=== PATIENT | female | born 1940 | race Caucasian/White ===

== ENCOUNTER 2019-07-07 12:12 | Inpatient (IN) | payer MEDICARE ==
[2019-07-07 23:30] VITALS: BP 148/92
[2019-07-08] MEDS ORDERED: Magnesium Hydroxide (MOM) 30 mL UDC PO PRN (00:07)
--- NOTE | 2019-07-08 07:28 | Psychiatric Evaluation ---
DATE OF SERVICE: 07/07/2019 AGE: 78. SEX: Female. PHYSICIAN: Dr. Sierra. CHIEF COMPLAINT: "I am 23 years old." HISTORY OF PRESENT ILLNESS: The patient is a 78-year-old female who was admitted to the hospital from [facility] because of increased agitation and increased irritability. The patient has been increasingly agitated and confused. The patient also has not been able to follow out any directions and has been striking out at staff and peers. She also has been actively hallucinating and talking to herself and in angry and in irritable mood. She also has not been able to follow any of staff directions. The patient has history of depression and has been taking Prozac and Seroquel. PAST PSYCHIATRIC HISTORY: The patient has history of depression and psychosis and dementia. The patient is taking Seroquel and Prozac. PAST MEDICAL HISTORY: The patient has hypercholesterolemia and hypertension. SOCIAL HISTORY: The patient said that she has 1 son. She also said that she is . She denies alcohol or any street drug use. She lives in [facility]. ALLERGIES: No known allergies. MENTAL STATUS EXAMINATION: The patient appears her stated age, anxious, irritable mood. Confused and unable to answer any of the questions coherently. The patient denies any hallucinations or delusions, but she is actively responding to stimuli and actively hallucinating. The patient denies any thoughts of suicide or homicide. The patient is alert, but disoriented to time, place, person and situation. Impaired immediate, recent and remote memories and she is not even able to remember her date. Poor insight and poor judgment. ASSESSMENT: PRIMARY DIAGNOSIS: Unspecified psychosis. SECONDARY DIAGNOSIS: Dementia, severe, with psychotic features. MEDICAL DIAGNOSES: 1. Hypertension. 2. Hypercholesterolemia. TREATMENT PLAN: We will continue to monitor the patient's behavior and condition closely. Also, we will increase Seroquel to 25 mg twice a day. Also, we will continue to monitor her behavior and her condition closely. Also, we will work on her poor impulse control. ESTIMATED LENGTH OF STAY: 5-7 days. PATIENT'S STRENGTHS AND WEAKNESSES: The patient's strength is not clear at that time except that she seems to be in relatively fair health and have supportive team in the shelter. Weaknesses is her ineffective coping and poor impulse control. AFTER DISCHARGE PLAN: Outpatient treatment and followup, will continue as an outpatient and the patient will return back to [facility]. CRITERIA FOR DISCHARGE: Stabilize psychotropic medications and the patient will have better impulse control. JOB# [id number]
--- NOTE | 2019-07-08 12:21 | History and Physical ---
History of Present Illness - HPI Chief Complaint: 78 y/o female patient was brought into ER for evaluation due to Increased Agitation and Increased Irritability. HPI: 78 y/o female patient was admitted to [facility] for evaluation due to Increased Agitation and Increased Irritability. Patient has also been talking to herself and hallucinating. Patient has also been aggressive towards staff and others. Patient has history of Hypertension, Dementia, history of Depression, Psychosis and Hypercholesterolemia. Patient had a Psych consult and a workup was done. Patient was diagnosed with Unspecified Psychosis, Severe Dementia with Psychotic features, history of Depression, history of Hypertension,and History of Hypercholesterolemia. I will follow, treat and monitor patient. Patient will continue current treatment plan as ordered. Vital Signs: Last Vital Signs Temp 98.1 F 07/08/19 06:38 Pulse 66 07/08/19 06:38 Resp 18 07/08/19 06:38 BP 136/68 07/08/19 06:38 Pulse Ox 97 07/08/19 06:38 Past Medical History Cardiovascular: Report: HTN Pulmonary: Report: No Pertinent Hx COP EXAMINER: Report: Dementia GI: Report: No Pertinent Hx Psych: Report: Psychosis Musculoskeletal: Report: No Pertinent Hx Rheumatologic: Report: No pertinent Hx Infectious Disease: Report: No Pertinent Hx Renal/: Report: No Pertinent Hx Endocrine: Report: No Pertinent Hx Dermatology: Report: No Pertinent Hx - Past Surgical History Past Surgical History: No pertinent Hx Family Medical History - Family Member mother History Unknown: Yes Ethnicity: Unknown Living Status: Unknown Hx Family Cancer: (unknown) Hx Family Coronary Artery Disease: (unknown) Hx Family Congestive Heart Failure: (unknown) Hx Family Hypertension: (unknown) Hx Family Stroke: (unknown) Hx Family Diabetes: (unknown) Hx Family Seizures: (unknown) Hx Family Dementia: (unnown) Hx Family AIDS: (unknown) Hx Family COPD: (unknown) Hx Family Hepatitis: (unknown) Hx Family Psychiatric Problems: (unknown) Hx Family Tuberculosis: (unknown) Social History Smoke: No Alcohol: None Drugs: None Lives: Skilled Nursing Domestic Violence: Negative Health Maintenance Health Maintenance: Other (Please see chart.) - Medications Home Medications: Home Medication Medication Instructions Recorded Type Atorvastatin Calcium [Lipitor] 40 mg PO HS 07/07/19 History Donepezil HCl 5 mg PO DAILY 07/07/19 History Fluoxetine HCl [Sarafem] 20 mg PO DAILY 07/07/19 History Metoprolol Tartrate [Lopressor] 50 mg PO DAILY 07/07/19 History Nitrofurantoin Monohyd/M-Cryst 100 mg PO BID MDD 20 07/07/19 History [Macrobid 100 mg Capsule] Oxybutynin Chloride [Ditropan Xl] 10 mg PO DAILY 07/07/19 History QUEtiapine Fumarate [SEROquel] 25 mg PO HS 07/07/19 History Other Medications: Please see Medication reconciliation sheet. - Allergies Allergies/Adverse Reactions: Allergies Allergy/AdvReac Type Severity Reaction Status Date / Time No Known Allergies Allergy Verified 07/07/19 23:34 Review of Systems - Review of Systems Review of Systems: Patient is very delusional and irritable, needs close monitoring. Constitutional: Report: No Significant Eyes: Report: No Significant ENT: Report: No Significant Respiratory: Report: No Significant Cardiovascular: Report: No Significant Gastrointestinal: Report: No Significant Genitourinary: Report: No Significant Musculoskeletal: Report: No Significant Skin: Report: No Significant Neurological: Report: Confusion Physical Exam - Physical Exam HEENT: Report: Ears Nose Throat within normal limits Neck: Report: Within normal limits Cardiovascular Systems: Report: +s1/s2 noted, Regular, Rate and Rhythm Respiratory: Report: Breath Sounds are within normal limits Abdomen: Report: Non-tender to palpation Back: Report: Inspection of back is within normal limits. Extremities: Report: Non-tender to palpation. Skin: Report: Color of skin is within normal limits Neuro/Psych: Report: Disoriented to name time or place, Depressed affect - Lab Results All Lab Results last 24 hours: see lab results. - Assessment Assessment: Unspecified Psychosis. Severe Dementia with Psychotic features. History of Depression. History of Hypertension. History of Hypercholesterolemia. - Plan Plan: Monitor vitals and labs. Psych management as per Psych. Supportive care. Monitor diet and nutritional support. Pain management. Continue current treatment plan as ordered.
--- NOTE | 2019-07-09 07:25 | Progress Notes ---
DATE: SUBJECTIVE: Chart was reviewed and the patient interviewed. Also, discussed the patient's condition with the staff and reviewed records and labs. The patient is still agitated and is still confused. The patient is still restless and she is still striking out at staff when they tried to help her with her ADLs. She also is still unable to answer questions coherently and is still withdrawn and guarded. ASSESSMENT: The patient is still agitated and confused. TREATMENT PLAN: We will decrease Prozac to 10 mg every day because that might also contribute to her agitation. Also, we will continue Seroquel same dose and continue to monitor her behavior closely. JOB# [id number]
--- NOTE | 2019-07-09 13:28 | Internal Medicine Prog Note ---
Internal Medicine Subjective - Subjective Service Date: 07/09/19 Patient seen and examined:: with staff Patient is:: awake, denies any new complaints Per staff patient has:: tolerating meds Internal Medicine Objective - Physical Exam Vitals and I&O: Vital Signs Temp 98.0 F 07/09/19 06:00 Pulse 67 07/09/19 06:00 Resp 18 07/09/19 08:00 BP 123/58 07/09/19 06:00 Pulse Ox 96 07/09/19 06:00 Intake & Output 07/08/19 07/09/19 07/09/19 18:59 06:59 18:59 Intake Total 900 120 Balance 900 120 Intake: Oral 900 120 Other: # Voids 3 2 # Bowel Movements 1 0 Stool Characteristics Soft Soft Soft Active Medications: Current Medications Acetaminophen (Tylenol) 650 mg PO Q4H PRN PRN Reason: Pain (Mild 1-3) Stop: 09/06/19 00:06 Fluoxetine HCl (Prozac) 10 mg PO DAILY PROSPER Stop: 09/07/19 08:59 Lorazepam (Ativan) 0.5 mg PO Q4HR PRN; Protocol PRN Reason: Agitation Stop: 08/07/19 00:06 Magnesium Hydroxide (Milk Of Magnesia) 30 ml PO HS PRN PRN Reason: Constipation Nitrofurantoin Macrocrystals (Macrobid) 100 mg PO BID PROSPER; Protocol Stop: 07/19/19 16:59 Quetiapine Fumarate (Seroquel) 25 mg PO HS PROSPER; Protocol Stop: 09/06/19 20:59 Last Admin: 07/08/19 21:01 Dose: 25 mg Quetiapine Fumarate (Seroquel) 12.5 mg PO DAILY PROSPER; Protocol Stop: 09/06/19 08:59 Last Admin: 07/09/19 08:38 Dose: 12.5 mg Zolpidem Tartrate (Ambien) 5 mg PO HS PRN PRN Reason: Insomnia Stop: 09/06/19 00:06 General: alert HEENT: NC/AT, PERRLA Neck: Supple Lungs: CTAB Cardiovascular: without murmur Abdomen: soft, non-tender, non-distended Extremities: excoriation Neurological: alert Internal Medicine Assmt/Plan - Assessment Assessment: Unspecified Psychosis. Severe Dementia with Psychotic features. History of Depression. History of Hypertension. History of Hypercholesterolemia. - Plan Plan: Monitor vitals and labs. Psych management as per Psych. Supportive care. Monitor diet and nutritional support. Pain management. Continue current treatment plan as ordered.
--- NOTE | 2019-07-10 11:56 | Internal Medicine Prog Note ---
Internal Medicine Subjective - Subjective Service Date: 07/10/19 Patient seen and examined:: with staff Patient is:: awake, verbal, agitated, confused Patient Complaints of:: other (Hostile behavior.) Per staff patient has:: no adverse event, no episodes of fall, tolerating meds Internal Medicine Objective - Physical Exam Vitals and I&O: Vital Signs Temp 97.8 F 07/10/19 06:22 Pulse 75 07/10/19 06:22 Resp 19 07/10/19 06:22 BP 141/80 07/10/19 06:22 Pulse Ox 96 07/10/19 06:22 Intake & Output 07/09/19 07/10/19 07/10/19 18:59 06:59 18:59 Intake Total 1200 300 Output Total 1 Balance 1200 299 Intake: Oral 1200 300 Output: Urine/Stool Mix 1 Other: # Voids 2 # Bowel Movements 1 2 Stool Characteristics Soft Soft Active Medications: Current Medications Acetaminophen (Tylenol) 650 mg PO Q4H PRN PRN Reason: Pain (Mild 1-3) Stop: 09/06/19 00:06 Fluoxetine HCl (Prozac) 10 mg PO DAILY PROSPER Stop: 09/07/19 08:59 Last Admin: 07/10/19 08:40 Dose: 10 mg Lorazepam (Ativan) 0.5 mg PO Q4HR PRN; Protocol PRN Reason: Agitation Stop: 08/07/19 00:06 Magnesium Hydroxide (Milk Of Magnesia) 30 ml PO HS PRN PRN Reason: Constipation Nitrofurantoin Macrocrystals (Macrobid) 100 mg PO BID PROSPER; Protocol Stop: 07/19/19 16:59 Last Admin: 07/10/19 08:38 Dose: 100 mg Quetiapine Fumarate (Seroquel) 25 mg PO HS PROSPER; Protocol Stop: 09/06/19 20:59 Last Admin: 07/09/19 20:54 Dose: 25 mg Quetiapine Fumarate (Seroquel) 12.5 mg PO DAILY PROSPER; Protocol Stop: 09/06/19 08:59 Last Admin: 07/10/19 08:39 Dose: 12.5 mg Zolpidem Tartrate (Ambien) 5 mg PO HS PRN PRN Reason: Insomnia Stop: 09/06/19 00:06 Physical Exam: Patient needs close monitoring, Hostile behavior towards staff, patient is agitated and confused. General: alert HEENT: NC/AT, PERRLA Neck: Supple Lungs: CTAB Cardiovascular: without murmur Abdomen: soft, non-tender, non-distended Extremities: excoriation Neurological: alert Internal Medicine Assmt/Plan - Assessment Assessment: Unspecified Psychosis. Severe Dementia with Psychotic features. History of Depression. History of Hypertension. History of Hypercholesterolemia. - Plan Plan: Monitor vitals and labs. Psych management as per Psych. Supportive care. Monitor diet and nutritional support. Pain management. Continue current treatment plan as ordered. Nutritional Asmnt/Malnutr-PDOC - Dietary Evaluation Malnutrition Findings (Please click <Entered> for more info): see orders.
--- NOTE | 2019-07-10 21:50 | Progress Notes ---
DATE: PSYCHIATRIC PROGRESS NOTE SUBJECTIVE: Chart was reviewed and the patient interviewed. Also discussed the patient's condition with the staff and reviewed records and labs. The patient is still agitated and is still in irritable mood. The patient also is still pounding on the Alannah chair with cough spits and she still needs lots of redirections. Also, uncooperative with the staff and resisting care and tried to strike out towards staff helping her with her ADLs. The patient is also still unable to follow directions because of her confusion and agitation. She also continued to take Rocephin for her urinary tract infection. ASSESSMENT: The patient is still psychotic and agitated. TREATMENT PLAN: Continue to monitor behavior and her condition closely. Also, continue Seroquel, Prozac that was decreased yesterday to 10 mg every day and continue monitoring behavior and follow up closely. JOB# [id number]
--- NOTE | 2019-07-12 01:00 | Progress Notes ---
DATE: 07/11/[address] Sierra. IDENTIFYING DATA: A 78-year-old female admitted from [facility] with agitation and increased irritability. ____ herself, withdrawn, disengaged. Today on [id number] evaluation, selectively mute, still agitated, irritable and disengaged. ASSESSMENT AND PLAN: The patient continues to be disorganized and impulsive, currently on Rocephin for urinary tract infection. We will continue with primary psychiatrist's treatment plan and goals, which includes the following medications: Prozac 10 mg a day and Seroquel 12.5 daily and 25 at nighttime. JOB# [id number]
[2019-07-12] MEDS ORDERED: CEFTRIAXONE IV SCH ×2 (09:00→10:00)
[2019-07-12] MEDS ORDERED: LIDOCAINE 1% IV SCH ×2 (09:00→10:00)
[2019-07-12] MEDS ORDERED: LIDOCAINE 1% IM SCH (10:08)
[2019-07-12] MEDS ORDERED: CEFTRIAXONE IM SCH (10:08)
[2019-07-12] MEDS: CEFTRIAXONE IM SCH (10:53)
[2019-07-12] MEDS: LIDOCAINE 1% IM SCH (10:53)
--- NOTE | 2019-07-12 17:41 | Progress Notes ---
DATE: 07/12/2019 SUBJECTIVE: On [id number], isolated, withdrawn, mostly looking and staring to the wall, minimally engaging, non-participating with selectively mute at times. ASSESSMENT AND PLAN: Grossly disorganized, needing a lot of redirections to maintain simple conversation. We will continue with primary psychiatric treatment plan and goals. JOB# [id number]
[2019-07-12] MEDS ORDERED: Non-Formulary Item 1 EA (Atorvastatin Calcium [Lipitor] 40 MG) PO SCH (21:00)
[2019-07-12] MEDS: Amoxicillin/Clavulanate 500/125 Tab PO SCH (21:39)
[2019-07-13] MEDS: Oxybutynin Chloride 5 mg ER Tab PO SCH (08:48)
[2019-07-13] MEDS: Amoxicillin/Clavulanate 500/125 Tab PO SCH ×3 (08:48→16:19)
[2019-07-13] MEDS ORDERED: OXYBUTYNIN CHLORIDE 10 MG PO SCH (09:00)
[2019-07-13] MEDS ORDERED: CEFTRIAXONE 1 GM IM SCH (10:00)
[2019-07-13] MEDS: LIDOCAINE 1% IM SCH (10:00)
[2019-07-13] MEDS: CEFTRIAXONE IM SCH (10:00)
--- NOTE | 2019-07-13 11:30 | Internal Medicine Prog Note ---
Internal Medicine Subjective - Subjective Service Date: 07/13/19 Patient seen and examined:: with staff Patient is:: awake, verbal, agitated, confused Patient Complaints of:: other (Hostile behavior.) Per staff patient has:: no adverse event, no episodes of fall, tolerating meds Internal Medicine Objective - Physical Exam Vitals and I&O: Vital Signs Temp 97.4 F 07/13/19 05:37 Pulse 72 07/13/19 08:49 Resp 17 07/13/19 08:00 BP 127/73 07/13/19 08:49 Pulse Ox 96 07/13/19 05:37 Intake & Output 07/12/19 07/13/19 07/13/19 18:59 06:59 18:59 Intake Total 600 240 Balance 600 240 Intake: Oral 600 240 Other: # Voids 3 1 # Bowel Movements 0 Active Medications: Current Medications Acetaminophen (Tylenol) 650 mg PO Q4H PRN PRN Reason: Pain (Mild 1-3) Stop: 09/06/19 00:06 Amoxicillin/Clavulanate Potassium (Augmentin 500-125mg) 1 tab PO TIDWM [facility] Stop: 09/10/19 20:59 Last Admin: 07/13/19 08:48 Dose: 1 tab Atorvastatin Calcium (Lipitor) 40 mg PO HS [facility] Stop: 09/10/19 20:59 Last Admin: 07/12/19 21:39 Dose: 40 mg Donepezil HCl (Aricept) 10 mg PO DAILY [facility] Stop: 09/11/19 08:59 Last Admin: 07/13/19 08:48 Dose: 10 mg Fluoxetine HCl (Prozac) 10 mg PO DAILY [facility] Stop: 09/07/19 08:59 Last Admin: 07/13/19 08:49 Dose: 10 mg Ceftriaxone Sodium 1 gm/ (Lidocaine HCl) 3.5 mls @ 7 mls/hr IM Q24HR@0900 [facility] Stop: 09/10/19 10:34 Last Admin: 07/13/19 10:00 Dose: 7 mls/hr Lorazepam (Ativan) 0.5 mg PO Q4HR PRN; Protocol PRN Reason: Agitation Stop: 08/07/19 00:06 Magnesium Hydroxide (Milk Of Magnesia) 30 ml PO HS PRN PRN Reason: Constipation Metoprolol Tartrate (Lopressor) 50 mg PO DAILY [facility] Stop: 09/11/19 08:59 Last Admin: 07/13/19 08:49 Dose: 50 mg Oxybutynin Chloride (Ditropan Xl) 10 mg PO DAILY [facility] Stop: 09/11/19 08:59 Last Admin: 07/13/19 08:48 Dose: 10 mg Quetiapine Fumarate (Seroquel) 25 mg PO HS PROSPER; Protocol Stop: 09/06/19 20:59 Last Admin: 07/12/19 21:40 Dose: 25 mg Quetiapine Fumarate (Seroquel) 12.5 mg PO DAILY PROSPER; Protocol Stop: 09/06/19 08:59 Last Admin: 07/13/19 08:48 Dose: 12.5 mg Zolpidem Tartrate (Ambien) 5 mg PO HS PRN PRN Reason: Insomnia Stop: 09/06/19 00:06 Last Admin: 07/12/19 21:39 Dose: 5 mg Physical Exam: Patient needs close monitoring, very confused, easily frustrated and irritable, striking out towards staff. General: alert HEENT: NC/AT, PERRLA Neck: Supple Lungs: CTAB Cardiovascular: without murmur Abdomen: soft, non-tender, non-distended Extremities: excoriation Neurological: alert Internal Medicine Assmt/Plan - Assessment Assessment: Unspecified Psychosis. Severe Dementia with Psychotic features. History of Depression. History of Hypertension. History of Hypercholesterolemia. - Plan Plan: Monitor vitals and labs. Psych management as per Psych. Supportive care. Monitor diet and nutritional support. Pain management. Continue current treatment plan as ordered. Nutritional Asmnt/Malnutr-PDOC - Dietary Evaluation Malnutrition Findings (Please click <Entered> for more info): Nutritional Asmnt/Malnutrition Start: 07/10/19 15: 20 Text: Status: Complete Freq: Protocol: Document 07/10/19 15:20 MATHIEU (Rec: 07/10/19 15:22 MATHIEU [email or web address]) Nutritional Asmnt/Malnutrition Patient General Information Nutritional Screening Moderate Risk Diagnosis Psychosis Pertinent Medical Hx/Surgical Hx Depression, HTN, Hypercholesterolemia Subjective Information Pt is a 78-year-old female admitted on 2/4 d/t increased agitation and irritability. Pt is eating an estimated 88% of meals since admit date (x2 days) Per Meal/Nutrition Activity Record. Dietary is currently providing an estimated 1700 kcals and 85 gm Pro, per Pt PO intake this is providing an estimated 1500 kcals and 75gm Pro to meet 100 % kcal and 100+% Pro needs. Visited pt in resting room today, explained her Cardiac diet Rx, educated her on eating lots of fruits and vegetables and explained why we do not put salt on her trays. Pt understood and was very pleasant. Anthropometrics HT: 5 FT WT: 129 LB (58.64 kg) BMI: 25.33 (Overweight) GI/ Skin Integrity GI: WNL, Soft, Flat, Non- tender BM: 07/10 x2 I/O: 1500/1 (+1499) Skin: Buttocks Reddness Rubens: 17 Diet Order: Cardiac, Chopped, ASAD Estimated Energy Needs: ( Geriatric, CBW) 6578-7033 kcals (25-30 kcals/ kg) 60-70g Pro (1.0-1.2 g/kg) 4800-5553 ml (25-30 ml/kg) Current Diet Order/ Nutrition Support Cardiac, Chopped, ASAD Patient / S.O Can Pertinent Medications MOM (PRN) Pertinent Labs 2: Tags 298, HDL 35, Glucose 105, Alk Phos 149 Nutritional Hx/Data Height 1.52 m Height (Calculated Centimeters) 152.4 Current Weight (lbs) 58.513 kg Weight (Calculated Kilograms) 58.5 Weight (Calculated Grams) 21053.4 [place] Body Weight 100 LB (45.45 kg) % [place] Body Weight 129 Body Mass Index (BMI) 25.2 Weight Status Overweight GI Symptoms GI Symptoms None Last BM 07/10 x2 Skin Integrity/Comment: Skin: Buttocks Reddness Rubens: 17 Estimated Nutritional Goals BEE in Kcals: Using Current wt Calories/Kcals/Kg 25-30 Kcals Calculated 3843-8014 Protein: Using Current wt Protein g/k.0-1.2 Protein Calculated 60-70 Fluid: ml 6514-9397 ml (25-30 ml/kg) Nutritional Problem 1. Problem Problem Altered nutrition related labs Etiology r/t pathophysiological causes Signs/Symptoms: aeb labs (07/08): Tags 298, HDL 35, Hx HTN and Hypercholesterolemia. Malnutrition Related to Morbid Obesity Malnutrition related to morbid obesity No Intervention/Recommendation Comments Continue Cardiac, Chopped, ASAD diet as tolerated d/t Hx HTN and Labs (07/08): Tags 298, HDL 35. Expected Outcomes/Goals Expected Outcomes/Goals 1.PO intake to continue to meet >75% of estimated nutritional needs. 2.Monitor PO intake, wt, nutrition related labs to trend WNL, and skin integrity to trend WNL. 3.F/U as low risk in 7-10 days , 07/17-07/20.
--- NOTE | 2019-07-13 23:41 | Progress Notes ---
DATE: 07/13/2019 PSYCHIATRIC PROGRESS NOTE SUBJECTIVE: Chart was reviewed and patient interviewed. Also discussed the patient's condition with the staff and reviewed records and labs. The patient is still anxious and is still in a depressed mood. The patient also is withdrawn and interacting minimally with others. On the other hand, patient seems to be less agitated and less irritable and is more cooperative with her treatment and compliant with taking her medications. Also, easier to follow directions. ASSESSMENT: The patient seems to be slightly less depressed and less agitated. TREATMENT PLAN: Continue to monitor behavior and condition closely. Also, we will increase Aricept to 10 mg every day and continue to monitor her condition closely. JOB# [id number]
--- NOTE | 2019-07-14 06:48 | Discharge Summary ---
DATE OF DISCHARGE: 07/14/2019 DISCHARGE SUMMARY PATIENT'S AGE: 78. SEX: Female. PHYSICIAN: Dr. Sierra. FINAL DIAGNOSIS: PRIMARY DIAGNOSIS: Schizophrenic disorder, unspecified. SECONDARY DIAGNOSIS: Dementia, severe, with psychotic features. MEDICAL DIAGNOSES: 1. Hypertension. 2. Hypercholesterolemia. REASON FOR HOSPITALIZATION: The patient was admitted to the hospital from [facility] because of increased agitation and increased irritability. HOSPITAL COURSE: The patient continued to be extremely irritable and agitated. The patient also was restless. The patient also was slightly confused. She also needed redirections. The patient was given Seroquel in a dose of 12.5 mg every day and 25 mg at bedtime. The patient's affect became brighter. The patient was less irritable and less agitated. Also, it was easier to follow directions. The patient also continued to take Aricept and Prozac with no side effects. Physical exam of the patient came as mentioned under AXIS III of final diagnosis. Blood workup was also basically within normal. AFTER DISCHARGE PLANS: The patient discharged from the hospital and went to [facility] with plans for outpatient treatment and follow up there. EXPECTED OUTCOME AFTER DISCHARGE: Fair if the patient continues to take her psychotropic medications and follow up with discharge plans. [facility]# [id number]
[2019-07-14] MEDS: Amoxicillin/Clavulanate 500/125 Tab PO SCH ×3 (08:22→16:09)
[2019-07-14] MEDS: Oxybutynin Chloride 5 mg ER Tab PO SCH (08:24)
--- NOTE | 2019-07-14 12:57 | Internal Medicine Prog Note ---
Internal Medicine Subjective - Subjective Service Date: 07/14/19 Patient seen and examined:: with staff Patient is:: awake, verbal, agitated, confused Patient Complaints of:: other (Hostile behavior.) Per staff patient has:: no adverse event, no episodes of fall, tolerating meds Internal Medicine Objective - Physical Exam Vitals and I&O: Vital Signs Temp 97.4 F 07/14/19 10:56 Pulse 60 07/14/19 10:56 Resp 17 07/14/19 10:56 BP 102/53 07/14/19 10:56 Pulse Ox 93 07/14/19 06:06 Intake & Output 07/13/19 07/14/19 07/14/19 18:59 06:59 18:59 Intake Total 1000 240 Balance 1000 240 Intake: Oral 1000 240 Other: # Voids 4 3 # Bowel Movements 1 0 Active Medications: Current Medications Acetaminophen (Tylenol) 650 mg PO Q4H PRN PRN Reason: Pain (Mild 1-3) Stop: 09/06/19 00:06 Amoxicillin/Clavulanate Potassium (Augmentin 500-125mg) 1 tab PO TIDWM [facility] Stop: 07/22/19 20:59 Last Admin: 07/14/19 12:00 Dose: 1 tab Atorvastatin Calcium (Lipitor) 40 mg PO HS [facility] Stop: 09/10/19 20:59 Last Admin: 07/13/19 20:33 Dose: 40 mg Donepezil HCl (Aricept) 10 mg PO DAILY [facility] Stop: 09/11/19 08:59 Last Admin: 07/14/19 08:22 Dose: 10 mg Fluoxetine HCl (Prozac) 10 mg PO DAILY [facility] Stop: 09/07/19 08:59 Last Admin: 07/14/19 08:24 Dose: 10 mg Lorazepam (Ativan) 0.5 mg PO Q4HR PRN; Protocol PRN Reason: Agitation Stop: 08/07/19 00:06 Magnesium Hydroxide (Milk Of Magnesia) 30 ml PO HS PRN PRN Reason: Constipation Metoprolol Tartrate (Lopressor) 50 mg PO DAILY [facility] Stop: 09/11/19 08:59 Last Admin: 07/14/19 08:24 Dose: Not Given Oxybutynin Chloride (Ditropan Xl) 10 mg PO DAILY [facility] Stop: 04/10/20 08:59 Last Admin: 07/14/19 08:24 Dose: 10 mg Quetiapine Fumarate (Seroquel) 25 mg PO HS [facility]; Protocol Stop: 09/06/19 20:59 Last Admin: 07/13/19 20:33 Dose: 25 mg Quetiapine Fumarate (Seroquel) 12.5 mg PO DAILY [facility]; Protocol Stop: 09/06/19 08:59 Last Admin: 07/14/19 08:23 Dose: 12.5 mg Zolpidem Tartrate (Ambien) 5 mg PO HS PRN PRN Reason: Insomnia Stop: 09/06/19 00:06 Last Admin: 07/13/19 20:34 Dose: 5 mg Physical Exam: Patient is being discharged today, will be closely monitored. General: alert HEENT: NC/AT, PERRLA Neck: Supple Lungs: CTAB Cardiovascular: without murmur Abdomen: soft, non-tender, non-distended Extremities: excoriation Neurological: alert Internal Medicine Assmt/Plan - Assessment Assessment: Unspecified Psychosis. Severe Dementia with Psychotic features. History of Depression. History of Hypertension. History of Hypercholesterolemia. - Plan Plan: Monitor vitals and labs. Psych management as per Psych. Supportive care. Monitor diet and nutritional support. Pain management. Continue current treatment plan as ordered. Nutritional Asmnt/Malnutr-PDOC - Dietary Evaluation Malnutrition Findings (Please click <Entered> for more info): Nutritional Asmnt/Malnutrition Start: 07/10/19 15: 20 Text: Status: Complete Freq: Protocol: Document 07/10/19 15:20 MATHIEU (Rec: 07/10/19 15:22 MATHIEU [email or web address]) Nutritional Asmnt/Malnutrition Patient General Information Nutritional Screening Moderate Risk Diagnosis Psychosis Pertinent Medical Hx/Surgical Hx Depression, HTN, Hypercholesterolemia Subjective Information Pt is a 78-year-old female admitted on 2/ d/t increased agitation and irritability. Pt is eating an estimated 88% of meals since admit date (x2 days) Per Meal/Nutrition Activity Record. Dietary is currently providing an estimated 1700 kcals and 85 gm Pro, per Pt PO intake this is providing an estimated 1500 kcals and 75gm Pro to meet 100 % kcal and 100+% Pro needs. Visited pt in resting room today, explained her Cardiac diet Rx, educated her on eating lots of fruits and vegetables and explained why we do not put salt on her trays. Pt understood and was very pleasant. Anthropometrics HT: 5 FT WT: 129 LB (58.64 kg) BMI: 25.33 (Overweight) GI/ Skin Integrity GI: WNL, Soft, Flat, Non- tender BM: 07/10 x2 I/O: 1500/1 (+1499) Skin: Buttocks Reddness Rubens: 17 Diet Order: Cardiac, Chopped, ASAD Estimated Energy Needs: ( Geriatric, CBW) 3194-4218 kcals (25-30 kcals/ kg) 60-70g Pro (1.0-1.2 g/kg) 8231-5685 ml (25-30 ml/kg) Current Diet Order/ Nutrition Support Cardiac, Chopped, ASAD Patient / S.O Can Pertinent Medications MOM (PRN) Pertinent Labs 07/08: Tags 298, HDL 35, Glucose 105, Alk Phos 149 Nutritional Hx/Data Height 1.52 m Height (Calculated Centimeters) 152.4 Current Weight (lbs) 58.513 kg Weight (Calculated Kilograms) 58.5 Weight (Calculated Grams) 66857.4 Sylvester Body Weight 100 LB (45.45 kg) % Sylvester Body Weight 129 Body Mass Index (BMI) 25.2 Weight Status Overweight GI Symptoms GI Symptoms None Last BM 07/10 x2 Skin Integrity/Comment: Skin: Buttocks Reddness Rubens: 17 Estimated Nutritional Goals BEE in Kcals: Using Current wt Calories/Kcals/Kg 25-30 Kcals Calculated 5433-8451 Protein: Using Current wt Protein g/k.0-1.2 Protein Calculated 60-70 Fluid: ml 4934-0980 ml (25-30 ml/kg) Nutritional Problem 1. Problem Problem Altered nutrition related labs Etiology r/t pathophysiological causes Signs/Symptoms: aeb labs (07/08): Tags 298, HDL 35, Hx HTN and Hypercholesterolemia. Malnutrition Related to Morbid Obesity Malnutrition related to morbid obesity No Intervention/Recommendation Comments Continue Cardiac, Chopped, ASAD diet as tolerated d/t Hx HTN and Labs (07/08): Tags 298, HDL 35. Expected Outcomes/Goals Expected Outcomes/Goals 1.PO intake to continue to meet >75% of estimated nutritional needs. 2.Monitor PO intake, wt, nutrition related labs to trend WNL, and skin integrity to trend WNL. 3.F/U as low risk in 7-10 days , 07/17-07/20.
--- NOTE | 2019-07-15 06:39 | Discharge Summary ---
DATE OF DISCHARGE: 07/15/2019 PSYCHIATRIC DISCHARGE SUMMARY AGE: 78. SEX: Female. PHYSICIAN: Dr. Sierra. FINAL PRIMARY DIAGNOSIS: Schizophrenic disorder, unspecified. SECONDARY DIAGNOSIS: Dementia, severe, with psychotic features. HOSPITAL COURSE: The patient was supposed to be discharged yesterday and the discharge summary was dictated and number is [id number]. For some unknown reason, the patient was not discharged yesterday and according to the staff reported that they had no room for her in the facility, although it happened as I was in the facility yesterday and they were waiting for the patient, and they had room for her. At the same time, hopefully today, the patient can be discharged. No change in the patient's behavior or condition from yesterday and we will discharge the patient today to [facility] and continue her care over there. JOB# [id number]
[2019-07-15] MEDS: Amoxicillin/Clavulanate 500/125 Tab PO SCH ×3 (08:28→16:24)
[2019-07-15] MEDS: Oxybutynin Chloride 5 mg ER Tab PO SCH (08:29)
--- NOTE | 2019-07-15 13:46 | Internal Medicine Prog Note ---
Internal Medicine Subjective - Subjective Service Date: 07/15/19 Patient seen and examined:: with staff Patient is:: awake, verbal, agitated, confused Patient Complaints of:: other (Hostile behavior.) Per staff patient has:: no adverse event, no episodes of fall, tolerating meds Internal Medicine Objective - Physical Exam Vitals and I&O: Vital Signs Temp 96.8 F 07/15/19 06:10 Pulse 62 07/15/19 08:30 Resp 17 07/15/19 08:00 BP 123/65 07/15/19 08:30 Pulse Ox 18 07/15/19 06:10 Intake & Output 07/14/19 07/15/19 07/15/19 18:59 06:59 18:59 Intake Total 450 440 250 Balance 450 440 250 Intake: Oral 450 440 250 Other: # Voids 3 # Bowel Movements 1 0 Active Medications: Current Medications Acetaminophen (Tylenol) 650 mg PO Q4H PRN PRN Reason: Pain (Mild 1-3) Stop: 09/06/19 00:06 Amoxicillin/Clavulanate Potassium (Augmentin 500-125mg) 1 tab PO TIDWM [facility] Stop: 07/22/19 20:59 Last Admin: 07/15/19 12:41 Dose: 1 tab Atorvastatin Calcium (Lipitor) 40 mg PO HS [facility] Stop: 09/10/19 20:59 Last Admin: 07/14/19 21:08 Dose: 40 mg Donepezil HCl (Aricept) 10 mg PO DAILY [facility] Stop: 09/11/19 08:59 Last Admin: 07/15/19 08:29 Dose: 10 mg Fluoxetine HCl (Prozac) 10 mg PO DAILY [facility] Stop: 09/07/19 08:59 Last Admin: 07/15/19 08:44 Dose: 10 mg Lorazepam (Ativan) 0.5 mg PO Q4HR PRN; Protocol PRN Reason: Agitation Stop: 08/07/19 00:06 Magnesium Hydroxide (Milk Of Magnesia) 30 ml PO HS PRN PRN Reason: Constipation Metoprolol Tartrate (Lopressor) 50 mg PO DAILY [facility] Stop: 09/11/19 08:59 Last Admin: 07/15/19 08:30 Dose: 50 mg Nystatin (Nystop) 100,000 units TP BID [facility] Stop: 09/13/19 16:59 Oxybutynin Chloride (Ditropan Xl) 10 mg PO DAILY [facility] Stop: 09/11/19 08:59 Last Admin: 07/15/19 08:29 Dose: 10 mg Quetiapine Fumarate (Seroquel) 25 mg PO HS [facility]; Protocol Stop: 09/06/19 20:59 Last Admin: 07/14/19 21:09 Dose: 25 mg Quetiapine Fumarate (Seroquel) 12.5 mg PO DAILY [facility]; Protocol Stop: 09/06/19 08:59 Last Admin: 07/15/19 08:29 Dose: 12.5 mg Zolpidem Tartrate (Ambien) 5 mg PO HS PRN PRN Reason: Insomnia Stop: 09/06/19 00:06 Last Admin: 07/14/19 21:09 Dose: 5 mg Physical Exam: Patient was supposed to be discharged yesterday but the Detention had no room , Patient is being discharged today, will be closely monitored. General: alert HEENT: NC/AT, PERRLA Neck: Supple Lungs: CTAB Cardiovascular: without murmur Abdomen: soft, non-tender, non-distended Extremities: excoriation Neurological: alert Internal Medicine Assmt/Plan - Assessment Assessment: Unspecified Psychosis. Severe Dementia with Psychotic features. History of Depression. History of Hypertension. History of Hypercholesterolemia. - Plan Plan: Monitor vitals and labs. Psych management as per Psych. Supportive care. Monitor diet and nutritional support. Pain management. Continue current treatment plan as ordered. Nutritional Asmnt/Malnutr-PDOC - Dietary Evaluation Malnutrition Findings (Please click <Entered> for more info): Nutritional Asmnt/Malnutrition Start: 07/10/19 15: 20 Text: Status: Complete Freq: Protocol: Document 07/10/19 15:20 MATHIEU (Rec: 07/10/19 15:22 MATHIEU [email or web address]) Nutritional Asmnt/Malnutrition Patient General Information Nutritional Screening Moderate Risk Diagnosis Psychosis Pertinent Medical Hx/Surgical Hx Depression, HTN, Hypercholesterolemia Subjective Information Pt is a 78-year-old female admitted on 2/ d/t increased agitation and irritability. Pt is eating an estimated 88% of meals since admit date (x2 days) Per Meal/Nutrition Activity Record. Dietary is currently providing an estimated 1700 kcals and 85 gm Pro, per Pt PO intake this is providing an estimated 1500 kcals and 75gm Pro to meet 100 % kcal and 100+% Pro needs. Visited pt in resting room today, explained her Cardiac diet Rx, educated her on eating lots of fruits and vegetables and explained why we do not put salt on her trays. Pt understood and was very pleasant. Anthropometrics HT: 5 FT WT: 129 LB (58.64 kg) BMI: 25.33 (Overweight) GI/ Skin Integrity GI: WNL, Soft, Flat, Non- tender BM: 07/10 x2 I/O: 1500/1 (+1499) Skin: Buttocks Reddness Rubens: 17 Diet Order: Cardiac, Chopped, ASAD Estimated Energy Needs: ( Geriatric, CBW) 9202-9602 kcals (25-30 kcals/ kg) 60-70g Pro (1.0-1.2 g/kg) 1010-2675 ml (25-30 ml/kg) Current Diet Order/ Nutrition Support Cardiac, Chopped, ASAD Patient / S.O Can Pertinent Medications MOM (PRN) Pertinent Labs 07/08: Tags 298, HDL 35, Glucose 105, Alk Phos 149 Nutritional Hx/Data Height 1.52 m Height (Calculated Centimeters) 152.4 Current Weight (lbs) 58.513 kg Weight (Calculated Kilograms) 58.5 Weight (Calculated Grams) 88733.4 Rake Body Weight 100 LB (45.45 kg) % Rake Body Weight 129 Body Mass Index (BMI) 25.2 Weight Status Overweight GI Symptoms GI Symptoms None Last BM 07/10 x2 Skin Integrity/Comment: Skin: Buttocks Reddness Rubens: 17 Estimated Nutritional Goals BEE in Kcals: Using Current wt Calories/Kcals/Kg 25-30 Kcals Calculated 2280-1015 Protein: Using Current wt Protein g/k.0-1.2 Protein Calculated 60-70 Fluid: ml 3843-3492 ml (25-30 ml/kg) Nutritional Problem 1. Problem Problem Altered nutrition related labs Etiology r/t pathophysiological causes Signs/Symptoms: aeb labs (07/08): Tags 298, HDL 35, Hx HTN and Hypercholesterolemia. Malnutrition Related to Morbid Obesity Malnutrition related to morbid obesity No Intervention/Recommendation Comments Continue Cardiac, Chopped, ASAD diet as tolerated d/t Hx HTN and Labs (07/08): Tags 298, HDL 35. Expected Outcomes/Goals Expected Outcomes/Goals 1.PO intake to continue to meet >75% of estimated nutritional needs. 2.Monitor PO intake, wt, nutrition related labs to trend WNL, and skin integrity to trend WNL. 3.F/U as low risk in 7-10 days , 07/17-07/20.
[2019-07-15] MEDS ORDERED: NYSTATIN 100000 UNITS/GM POWD TP SCH (17:00)
== END 2019-07-15 16:45 | DRG 884 ==
LOC: GERO 21:46
PROVIDERS: ADMIT Psychiatry & Neurology Psychiatry; ATTEND Psychiatry & Neurology Psychiatry
DX: F03.90 Unspecified dementia, unspecified severity, without behavioral disturbance, psychotic disturbance, mood disturbance, and anxiety (principal); F29 Unspecified psychosis not due to a substance or known physiological condition; I10 Essential (primary) hypertension; E78.00 Pure hypercholesterolemia, unspecified; F32.9 Major depressive disorder, single episode, unspecified
CPT/HCPCS: 83036-90; J0696; Z7610